=== PATIENT | male | born 1960 | race Asian ===

== ENCOUNTER 2020-09-09 16:18 | Emergency (ER) | payer OTHER ==
[~2020-09-09] VITALS: Ht 175.3 cm; Wt 90.9 kg
[~2020-09-09 16:18] MED LIST: SIMV10TA97 PO
[2020-09-09] MEDS ORDERED: LISI-661 PO (16:21)
[2020-09-09] MEDS ORDERED: IBUPROFEN 600 MG TABLET PO ONE (16:45)
[2020-09-09] MEDS ORDERED: ACETAMINOPHEN/CODEINE 300-30 MG TABLET PO ONE (16:45)
[2020-09-09 18:09] VITALS: BP 119/64
== END 2020-09-09 18:10 | disposition home or self-care (01) ==
LOC: EMS 16:20
DX: S13.4XXA Sprain of ligaments of cervical spine, initial encounter (principal); S23.9XXA Sprain of unspecified parts of thorax, initial encounter; E78.00 Pure hypercholesterolemia, unspecified; V43.52XA Car driver injured in collision with other type car in traffic accident, initial encounter; Y93.89 Activity, other specified; Y92.488 Other paved roadways as the place of occurrence of the external cause; Y99.8 Other external cause status
CPT/HCPCS: 72040; 72070; Z7502; Z7610